=== PATIENT | female | born 1995 | race Caucasian/White ===

== ENCOUNTER 2016-11-09 06:12 | Emergency (ER) | payer OTHER ==
[~2016-11-09] VITALS: Ht 147.3 cm; Wt 54.4 kg
[~2016-11-09 06:12] MED LIST: AMOXIL250 MG/5 M PO; AMOXIL400 MG/5 M PO; AUGMENTIN ES-6100 ML PO; AUGMENTIN PO; BACTRIM PEDIAT200 ML PO; CEFDINIR250 MG/5 M PO; CEPHALEXIN250 MG/5 M PO; CILOXAN 5 ML5 M1 OP; CILOXAN 5 ML5 M1 OT; CLARITIN10 MG PO; CLARITIN5 MG/5 ML PO; KEFLEX250 MG/5 M PO; MIRALAX POWDER17 G1 PO; MIRALAX POWDER255 GM PO; MIRALAX17 GM/DOSE PO; MOTRIN CHI100 MG/51 PO; MOTRIN100 MG/5 M PO; NKHM; OMNICEF250 MG/5 M PO; ZITHROMAX200 MG/51 PO; ZOFRAN2 MG/ML PO
[2016-11-09] MEDS ORDERED: ZITHROMAX250 MG PO (06:45)
[2016-11-09] MEDS ORDERED: ZITHROMAX200 MG/51 PO (06:56)
== END 2016-11-09 07:00 | disposition home or self-care (01) ==
LOC: ED 06:12
DX: J02.9 Acute pharyngitis, unspecified (principal); R05 Cough; Z79.899 Other long term (current) drug therapy

== ENCOUNTER → 2016-11-15 | Outpatient (CLI) | payer OTHER ==
[~2016-11-15] MED LIST changes: +ZITHROMAX250 MG PO
== END | disposition home or self-care (01) ==
LOC: RAD 15:09
DX: J98.4 Other disorders of lung (principal)

== ENCOUNTER 2017-05-19 18:00 | Emergency (ER) | payer OTHER ==
[~2017-05-19] VITALS: Ht 137.1 cm; Wt 34.0 kg
== END 2017-05-19 18:56 | disposition home or self-care (01) ==
LOC: ED 18:00
DX: J02.9 Acute pharyngitis, unspecified (principal); R09.81 Nasal congestion; R05 Cough; Z79.899 Other long term (current) drug therapy

== ENCOUNTER 2017-05-21 04:04 | Emergency (ER) | payer OTHER ==
[~2017-05-21] VITALS: Ht 144.7 cm; Wt 31.8 kg
[2017-05-21] MEDS ORDERED: ZITHROMAX200 MG/51 PO (05:47)
[2017-05-21] MEDS ORDERED: ZOFRAN4 MG/5 ML PO (05:49)
[2017-05-21] MEDS ORDERED: Accuneb 0.1.25 MG/3 INH (05:49)
== END 2017-05-21 06:23 | disposition home or self-care (01) ==
LOC: ED 04:04
DX: K52.9 Noninfective gastroenteritis and colitis, unspecified (principal); J20.9 Acute bronchitis, unspecified; Z79.899 Other long term (current) drug therapy

== ENCOUNTER → 2021-07-25 | Day surgery (SDC) | payer MEDICARE, MEDICAID ==
[~2021-07-25] VITALS: Ht 147.3 cm; Wt 34.4 kg
[~2021-07-25] MED LIST changes: +Accuneb 0.1.25 MG/3 INH; +ZOFRAN4 MG/5 ML PO
[2021-07-25 09:00] VITALS: BP 110/51
[2021-07-25 10:44] VITALS: BP 78/35
[2021-07-25 10:59] VITALS: BP 97/54
[2021-07-25 11:14] VITALS: BP 98/56
[2021-07-25 11:28] VITALS: BP 92/52
[2021-07-25 11:42] VITALS: BP 97/53
== END | disposition home or self-care (01) ==
LOC: SDC 07-20 13:15
PROVIDERS: ATTEND Specialist
DX: H61.23 Impacted cerumen, bilateral (principal); L72.9 Follicular cyst of the skin and subcutaneous tissue, unspecified; K21.9 Gastro-esophageal reflux disease without esophagitis; Z79.899 Other long term (current) drug therapy

== ENCOUNTER → 2022-05-14 | Day surgery (SDC) | payer MEDICARE, MEDICAID ==
[~2022-05-14] VITALS: Ht 144.7 cm; Wt 34.9 kg
[~2022-05-14] MED LIST changes: +COMPLETE M9 MG/15 ML PO; +SAMBUCUS E50 MG/5 M1 PO
[2022-05-14 08:35] VITALS: BP 101/52
[2022-05-14 11:03] VITALS: BP 74/34
[2022-05-14 11:18] VITALS: BP 75/36
[2022-05-14 11:33] VITALS: BP 80/50
[2022-05-14 11:48] VITALS: BP 87/53
[2022-05-14 12:00] VITALS: BP 90/57
== END | disposition home or self-care (01) ==
LOC: SDC 05-10 13:15
PROVIDERS: ATTEND Specialist
DX: H61.23 Impacted cerumen, bilateral (principal)

== ENCOUNTER → 2022-07-04 | Outpatient (CLI) | payer MEDICARE, MEDICAID ==
[2022-07-04 09:27] LABS: BILIRUBIN Negative (Negative); BLOOD Negative (Negative); CLARITY Clear (Clear); COLOR Yellow (Yellow); GLUCOSE Negative (Negative); KETONE Negative (Negative); LEUKO ESTERASE Negative (Negative); NITRITE Negative (Negative); SPECIFIC GRAVITY 1.015 (1.001-1.030); UROBILINOGEN 0.2 E.U./dl (0.0-1.0)
[2022-07-04 11:09] LABS: BACTERIA 1+
== END | disposition home or self-care (01) ==
LOC: LAB 08:17
PROVIDERS: ATTEND Specialist
DX: G83.4 Cauda equina syndrome (principal)

== ENCOUNTER → 2023-08-14 | Outpatient (CLI) | payer MEDICARE, MEDICAID ==
[2023-08-14 15:35] LABS: CHLORIDE 106 mmol/L (98-107); POTASSIUM 4.2 mmol/L (3.4-5.1)
[2023-08-14 15:46] LABS: BUN < 5 mg/dl (9-23)
== END | disposition home or self-care (01) ==
LOC: LAB 14:53
PROVIDERS: ATTEND Family Medicine
DX: N18.30 Chronic kidney disease, stage 3 unspecified (principal)

== ENCOUNTER → 2023-08-18 | Outpatient (CLI) | payer MEDICARE, MEDICAID | END | disposition home or self-care (01) | LOC: LAB 08:33 | PROVIDERS: ATTEND Family Medicine | DX: N18.9 Chronic kidney disease, unspecified (principal) ==